=== PATIENT | male | born 1945 | race Caucasian/White ===

== ENCOUNTER 2022-01-31 07:08 | Outpatient (REF) | payer MEDICARE, SELFPAY ==
[2022-01-31 07:36] LABS: MANUAL DIFF FLAG NO
[2022-01-31 08:25] LABS: Basophils Absolute Auto 0.1 X10*3/uL (0.0-0.2); Basophils Percent Auto 0.9 % (0-2); Eosinophils Absolute Auto 0.4 X10*3/uL (0.0-0.4); Eosinophils Percent Auto 3.9 % (0-4); Hematocrit 46.7 % (42.0-52.0); Hemoglobin 15.1 g/dl (14.0-18.0); Imm Gran Abs Auto 0.05 X10*3/uL (0.00-0.03); Imm Gran Pct Auto 0.5 % (0.0-0.4); Lymphocytes Percent Auto 18.6 % (20-40); Mean Corpuscular HGB Conc 32.3 g/dl (31.0-36.0); Mean Corpuscular Hemoglobin 28.7 pg (27.0-33.0); Mean Corpuscular Volume 88.6 fL (80.0-98.0); Mean Platelet Volume 10.2 fL (9.4-12.4); Monocytes Absolute Auto 0.7 X10*3/uL (0.1-1.2); Monocytes Percent Auto 6.4 % (2-11); Neutrophils Absolute Auto 7.6 x10*3/uL (2.0-8.3); Neutrophils Percent Auto 69.7 % (45-73); Platelet Count 368 X10*3/uL (160-400); Red Blood Count 5.27 X10*6/uL (4.60-5.80); Red Cell Distribution Width 13.7 % (11.0-16.0)
[2022-01-31 08:30] LABS: Estimated Average Glucose 123 mg/dL; Hemoglobin A1c % 5.9 %
[2022-01-31 09:01] LABS: Prostate Specific Antigen Scr 0.17 ng/mL (<0.05-4.0); TSH reflex Free T4 1.38 uIU/mL (0.32-4.0)
[2022-01-31 09:02] LABS: Alanine Aminotransferase 13 U/L (0-40); Albumin Level 4.1 g/dL (3.5-5.0); Alkaline Phosphatase 102 U/L (39-117); Anion Gap 16 (12-20); Aspartate Amino Transferase 14 U/L (5-37); Bilirubin Total 0.6 mg/dL (0.0-1.0); Blood Urea Nitrogen 16 mg/dL (9-16); Calcium 9.3 mg/dL (8.4-10.2); Carbon Dioxide 27 mmol/L (22-29); Chloride 101 mmol/L (96-108); Cholesterol 203 mg/dL; Estimated Glomerular Filt Rate 46; Glucose Fasting 126 mg/dL (60-99); HDL Cholesterol 39 mg/dL; LDL Cholesterol Calculated 130 mg/dl; Potassium 4.5 mmol/L (3.3-5.1); Sodium 139 mmol/L (135-145); Total Protein 7.2 g/dL (6.5-8.0); Triglycerides 171 mg/dL; Uric Acid 7.8 mg/dL (3.4-7.0)
[2022-01-31 09:15] LABS: Folate 15.7 ng/mL (> or = 4.0); Vitamin B12 467 pg/mL (200-900)
[2022-02-06 17:01] LABS: Vitamin D 25-OH, D2 <4 ng/mL; Vitamin D 25-OH, D3 36 ng/mL; Vitamin D 25-OH, Total 36 ng/mL (30-100)
== END 2022-01-31 07:09 | disposition home or self-care (01) ==
LOC: HO.LAB 07:08
PROVIDERS: PCP Nurse Practitioner Acute Care; Visit Provider Nurse Practitioner Acute Care
DX: Z12.5 Encounter for screening for malignant neoplasm of prostate (principal); I10 Essential (primary) hypertension; K21.9 Gastro-esophageal reflux disease without esophagitis; M10.9 Gout, unspecified; Z85.46 Personal history of malignant neoplasm of prostate
CPT/HCPCS: 36415; 80053; 80061; 82306; 82607; 82746; 83036; 84153; 84443; 84550; 85025

== ENCOUNTER 2022-08-22 07:16 | Outpatient (REF) | payer MEDICARE, SELFPAY ==
[2022-08-22 08:05] LABS: Baso%MD 1.2 %; Eos%MD 5.6 %; Hematocrit 45.8 % (42.0-52.0); Hemoglobin 15.4 g/dl (14.0-18.0); IG%MD 0.4 %; Mean Corpuscular HGB Conc 33.6 g/dl (31.0-36.0); Mean Corpuscular Hemoglobin 29.7 pg (27.0-33.0); Mean Corpuscular Volume 88.2 fL (80.0-98.0); Mono%MD 6.1 %; Neut%MD 65.7 %; Platelet Count 338 X10*3/uL (160-400); Red Blood Count 5.19 X10*6/uL (4.60-5.80); Red Cell Distribution Width 13.8 % (11.0-16.0)
[2022-08-22 09:00] LABS: Basophils Abs Manual 0.1 X10*3/uL (0.0-0.2); Basophils Percent Manual 1 % (0-2); Eosinophils Absolute Manual 0.7 X10*3/uL (0.0-0.4); Eosinophils Percent Manual 7 % (0-4); Lymphocytes Absolute Manual 1.9 X10*3/uL (1.2-4.9); Lymphocytes Percent Manual 19 % (20-40); Monocytes Absolute Manual 0.5 X10*3/uL (0.1-1.2); Monocytes Percent Manual 5 % (2-11); Neutrophils Percent Manual 68 % (45-73)
[2022-08-22 09:01] LABS: Platelet Estimate NORMAL (NORMAL); Platelet Morphology Comment NORMAL; RBC Morphology NORMAL
[2022-08-22 11:18] LABS: Band Neutrophils Percent 0 % (3-5); Neutrophils Absolute Manual 6.8 X10*3/uL (2.0-8.3)
== END 2022-08-22 07:17 | disposition home or self-care (01) ==
LOC: HO.LAB 07:16
PROVIDERS: Visit Provider Nurse Practitioner Acute Care
DX: N18.9 Chronic kidney disease, unspecified (principal)
CPT/HCPCS: 36415; 85007; 85025; 85027

== ENCOUNTER 2022-12-28 06:20 | Outpatient (REF) | payer MEDICARE, SELFPAY ==
[2022-12-28 08:16] LABS: Estimated Average Glucose 120 mg/dL; Hemoglobin A1C 151.5916 umol/L; Hemoglobin A1c % 5.8 %
[2022-12-28 08:47] LABS: Alanine Aminotransferase 11 U/L (0-40); Albumin Level 4.3 g/dL (3.5-5.0); Alkaline Phosphatase 112 U/L (39-117); Anion Gap 21 (12-20); Aspartate Amino Transferase 14 U/L (5-37); Bilirubin Total 0.8 mg/dL (0.0-1.0); Blood Urea Nitrogen 19 mg/dL (9-16); Carbon Dioxide 22 mmol/L (22-29); Chloride 101 mmol/L (96-108); Cholesterol 192 mg/dL; Estimated Glomerular Filt Rate 41; Glucose Random 130 mg/dL (60-115); HDL Cholesterol 42 mg/dL; LDL Cholesterol Calculated 124 mg/dl; Sodium 140 mmol/L (135-145); Total Protein 7.2 g/dL (6.5-8.0); Triglycerides 130 mg/dL
[2022-12-28 09:14] LABS: Calcium 9.4 mg/dL (8.4-10.2)
== END 2022-12-28 06:21 | disposition home or self-care (01) ==
LOC: HO.LAB 06:20
PROVIDERS: PCP Nurse Practitioner Family; Visit Provider Nurse Practitioner Family
DX: N18.2 Chronic kidney disease, stage 2 (mild) (principal); R73.01 Impaired fasting glucose; M10.9 Gout, unspecified; E78.5 Hyperlipidemia, unspecified
CPT/HCPCS: 36415; 80053; 80061; 83036; 84550

== ENCOUNTER 2023-03-31 07:46 | Outpatient (REF) | payer MEDICARE, SELFPAY ==
[2023-03-31 08:27] LABS: MANUAL DIFF FLAG NO
[2023-03-31 08:59] LABS: Basophils Absolute Auto 0.1 X10*3/uL (0.0-0.2); Basophils Percent Auto 1.1 % (0-2); Eosinophils Absolute Auto 0.6 X10*3/uL (0.0-0.4); Eosinophils Percent Auto 6.5 % (0-4); Hematocrit 45.7 % (42.0-52.0); Hemoglobin 14.6 g/dl (14.0-18.0); Imm Gran Abs Auto 0.03 X10*3/uL (0.00-0.03); Imm Gran Pct Auto 0.3 % (0.0-0.4); Lymphocytes Absolute Auto 1.9 X10*3/uL (1.2-4.9); Mean Corpuscular HGB Conc 31.9 g/dl (31.0-36.0); Mean Corpuscular Hemoglobin 28.7 pg (27.0-33.0); Mean Corpuscular Volume 89.8 fL (80.0-98.0); Mean Platelet Volume 10.4 fL (9.4-12.4); Monocytes Absolute Auto 0.6 X10*3/uL (0.1-1.2); Monocytes Percent Auto 6.4 % (2-11); Neutrophils Absolute Auto 6.1 x10*3/uL (2.0-8.3); Neutrophils Percent Auto 65.7 % (45-73); Platelet Count 328 X10*3/uL (160-400); Red Blood Count 5.09 X10*6/uL (4.60-5.80); Red Cell Distribution Width 13.8 % (11.0-16.0); White Blood Count 9.3 X10*3/uL (4.8-10.8)
[2023-03-31 09:14] LABS: Estimated Average Glucose 117 mg/dL; Hemoglobin A1c % 5.7 %
[2023-03-31 09:35] LABS: Alanine Aminotransferase 10 U/L (0-40); Albumin Level 4.1 g/dL (3.5-5.0); Alkaline Phosphatase 119 U/L (39-117); Anion Gap 15 (12-20); Aspartate Amino Transferase 13 U/L (5-37); Bilirubin Total 0.8 mg/dL (0.0-1.0); Blood Urea Nitrogen 17 mg/dL (9-16); Calcium 9.2 mg/dL (8.4-10.2); Carbon Dioxide 27 mmol/L (22-29); Chloride 104 mmol/L (96-108); Cholesterol 188 mg/dL; Estimated Glomerular Filt Rate 44; Glucose Fasting 120 mg/dL (60-99); HDL Cholesterol 39 mg/dL; LDL Cholesterol Calculated 127 mg/dl; Potassium 4.7 mmol/L (3.3-5.1); Sodium 141 mmol/L (135-145); Total Protein 6.9 g/dL (6.5-8.0); Triglycerides 112 mg/dL; Uric Acid 7.1 mg/dL (3.4-7.0)
[2023-03-31 10:07] LABS: Folate 11.6 ng/mL (> or = 4.0); TSH reflex Free T4 0.75 uIU/mL (0.32-4.0); Vitamin B12 516 pg/mL (200-900); Vitamin D 25-OH Total 50.4 ng/mL (>30)
== END 2023-03-31 07:47 | disposition home or self-care (01) ==
LOC: HO.LAB 07:46
PROVIDERS: PCP Nurse Practitioner Family; Visit Provider Nurse Practitioner Family
DX: I12.9 Hypertensive chronic kidney disease with stage 1 through stage 4 chronic kidney disease, or unspecified chronic kidney disease (principal); N18.2 Chronic kidney disease, stage 2 (mild); M10.9 Gout, unspecified; E78.5 Hyperlipidemia, unspecified; R73.01 Impaired fasting glucose; N18.30 Chronic kidney disease, stage 3 unspecified; E66.9 Obesity, unspecified; K21.9 Gastro-esophageal reflux disease without esophagitis
CPT/HCPCS: 36415; 80053; 80061; 82306; 82607; 82746; 83036; 84443; 84550; 85025

== ENCOUNTER 2023-06-16 07:14 | Outpatient (REF) | payer MEDICARE, SELFPAY ==
[2023-06-16 07:45] LABS: MANUAL DIFF FLAG NO
[2023-06-16 07:50] LABS: Basophils Absolute Auto 0.1 X10*3/uL (0.0-0.2); Eosinophils Absolute Auto 0.5 X10*3/uL (0.0-0.4); Eosinophils Percent Auto 4.8 % (0-4); Hematocrit 46.4 % (42.0-52.0); Hemoglobin 15.1 g/dl (14.0-18.0); Imm Gran Abs Auto 0.05 X10*3/uL (0.00-0.03); Imm Gran Pct Auto 0.5 % (0.0-0.4); Lymphocytes Absolute Auto 1.8 X10*3/uL (1.2-4.9); Lymphocytes Percent Auto 18.7 % (20-40); Mean Corpuscular HGB Conc 32.5 g/dl (31.0-36.0); Mean Corpuscular Hemoglobin 28.8 pg (27.0-33.0); Mean Corpuscular Volume 88.4 fL (80.0-98.0); Mean Platelet Volume 9.9 fL (9.4-12.4); Monocytes Absolute Auto 0.5 X10*3/uL (0.1-1.2); Monocytes Percent Auto 5.5 % (2-11); Neutrophils Absolute Auto 6.9 x10*3/uL (2.0-8.3); Neutrophils Percent Auto 69.5 % (45-73); Platelet Count 318 X10*3/uL (160-400); Red Blood Count 5.25 X10*6/uL (4.60-5.80); Red Cell Distribution Width 13.9 % (11.0-16.0); White Blood Count 9.9 X10*3/uL (4.8-10.8)
[2023-06-16 08:06] LABS: Estimated Average Glucose 114 mg/dL; Hemoglobin A1c % 5.6 %
[2023-06-16 08:18] LABS: Cholesterol 178 mg/dL; HDL Cholesterol 40 mg/dL; LDL Cholesterol Calculated 115 mg/dl; Triglycerides 119 mg/dL
[2023-06-16 08:25] LABS: Alanine Aminotransferase 10 U/L (0-40); Albumin Level 4.2 g/dL (3.5-5.0); Alkaline Phosphatase 96 U/L (39-117); Anion Gap 16 (12-20); Aspartate Amino Transferase 13 U/L (5-37); Bilirubin Total 0.5 mg/dL (0.0-1.0); Blood Urea Nitrogen 21 mg/dL (9-16); Calcium 9.4 mg/dL (8.4-10.2); Carbon Dioxide 24 mmol/L (22-29); Chloride 104 mmol/L (96-108); Estimated Glomerular Filt Rate 48; Glucose Random 128 mg/dL (60-115); Magnesium 1.9 mg/dL (1.6-2.6); Phosphorus 2.6 mg/dL (2.7-4.5); Potassium 4.4 mmol/L (3.3-5.1); Sodium 140 mmol/L (135-145); Total Protein 7.7 g/dL (6.5-8.0); Uric Acid 7.1 mg/dL (3.4-7.0)
[2023-06-16 08:41] LABS: Vitamin D 25-OH Total 49.6 ng/mL (>30)
[2023-06-16 08:47] LABS: Appearance Urine Clear; Color Urine Yellow; Glucose Urine UA Negative (Negative); Leukocyte Esterase Urine Negative (Negative); Nitrite Urine Negative (Negative); Urine Blood Negative (Negative); Urine Ketones Negative (Negative); Urine Protein Trace mg/dL (Neg-Trace)
[2023-06-16 09:13] LABS: Creatinine Urine 219.07 mg/dL; Protein/Creatinine Ratio, Ur 0.08 (<0.2); Total Protein Urine Random 18 mg/dL (<12)
[2023-06-18 12:28] LABS: Free Prostate Spec Ag <0.1 ng/mL; Percent Free Prostate Spec Ag UNABLE TO CALCULATE % (calc) (>25); Prostate Specific Ag Total 0.1 ng/mL (< OR = 4.0)
[2023-06-18 18:13] LABS: PTHI 67 pg/mL (16-77)
[2023-06-21 09:43] LABS: Prot Elec - Alpha1 0.3 g/dL (0.2-0.3); Prot Elec - Beta 1 0.5 g/dL (0.4-0.6); Prot Elec - Beta 2 0.5 g/dL (0.2-0.5); Prot Elec - Total Protein 7.1 g/dL (6.1-8.1)
== END 2023-06-16 07:15 | disposition home or self-care (01) ==
LOC: HO.LAB 07:14
PROVIDERS: Absent Provider Nurse Practitioner Family; Visit Provider Internal Medicine Nephrology
DX: Z12.5 Encounter for screening for malignant neoplasm of prostate (principal); R73.01 Impaired fasting glucose; E78.5 Hyperlipidemia, unspecified; I12.9 Hypertensive chronic kidney disease with stage 1 through stage 4 chronic kidney disease, or unspecified chronic kidney disease; N18.32 Chronic kidney disease, stage 3b; M10.9 Gout, unspecified; Z85.46 Personal history of malignant neoplasm of prostate
CPT/HCPCS: 36415; 80053; 80061; 81003; 82306; 83036; 83735; 83970; 84100; 84154; 84156; 84165; 84550; 85025

== ENCOUNTER 2023-07-11 14:08 | Outpatient (AMB) | payer MEDICARE, SELFPAY ==
[2023-07-11 14:10] VITALS: BP 134/72; PULSE 59; O2SAT 99; BMI 40.5
--- NOTE | 2023-07-11 14:10 | MHC.PC.OV ---
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 Allergies No Known Allergies Allergy (Verified 07/11/23 14:31) Medication List - Last Reconciled 07/11/23 by CHARMAINE Calderon allopurinol 100 mg PO DAILY amlodipine 5 mg PO BID colchicine (gout) 0.6 mg PO BID metoprolol succinate ER 50 mg PO DAILY multivitamin (Daily Multi-Vitamin tablet) 1 tab PO DAILY olmesartan-hydrochlorothiazide 40-25 mg 1 tab PO DAILY pantoprazole 40 mg PO DAILY psyllium 0.52 grams PO DAILY Tobacco use date assessed: 07/11/23 Fall risk assessment: No Falls in past year Last assessed Fall Risk: 07/11/23 Dental Screening Dental Screen Date: 07/11/23 Did you have a dental visit in the last 12 months?: Yes Did you have a dental problem in the last 6 months where you did not have access to dental care?: No HPI F/U HTN, CKD, GERD HPI Details Patient is a 78-year-old male who presents today for a routine follow-up.? Medical history significant for elevated fasting glucose, hyperlipidemia, CKD stage 3 - followed by Nephrology-next visit 07/2023, obesity, history of prostate cancer-followed by Dr. Craft, gout, GERD, and hypertension. Patient denies shortness of breath or chest pain.? Recent blood work results reviewed with the patient. Patient reports intermittent mucus in his mouth especially when he is laying down and he has to cough that mucus up, reports most likely is coming from his nose, denies any cough, no difficulty breathing. Reports taking Mucinex 600 mg 1 tablet daily for long time now. He reports trying nasal sprays in the past with no improvement. [facility] Medical History Encounter to establish care GERD without esophagitis Gout H/O prostate cancer Primary hypertension Surgical History H/O transurethral resection of prostate History of carpal tunnel surgery History of colon surgery History of colonoscopy History of prostate surgery Social History Housing: House Alcohol intake: current Alcohol intake frequency: holidays/special occasions only Patient Tobacco Use Status: Former Tobacco user Tobacco use type: Cigarette e-Cigarette/Vaping Use: Never Used Second Hand Smoke Exposure: No service: Yes Current occupational status: retired Cognitive needs: No Hearing needs: No Vision needs: Yes (glasses) Questionnaire Thrive Questionnaire Date Thrive assessed: 01/04/23 AUDIT C Alcohol Use Questionnaire (AUDIT-C) 1. How often do you have a drink containing alcohol?: Never 2. How many drinks containing alcohol do you have on a typical day when you are drinking?: 1 or 2 (0) 3. How often do you have six or more drinks on one occasion?: Never Total Score: 0 Score Reviewed/Action Taken: No SELAM-7 AMB Questionnaire SELAM-7 Date SELAM - 7 assessed: 07/11/23 Source: Developed by Drs. Bari Miller, Naina Culver, Sebastian Butler and colleagues, with an educational antonia from [employer]. Review of Systems Const Denies body aches, Denies chills, Denies fever(s) and Denies headache(s) Eyes Denies change in vision ENT Denies dizziness, Denies otalgia, Denies headache(s), Denies nasal discharge, Reports post nasal drip, Denies sinus pain and Denies sore throat Card Denies chest pain, Denies edema, Denies lightheadedness and Denies dyspnea Resp Denies chest congestion, Denies cough and Denies dyspnea GI Denies abdominal pain, Denies constipation, Denies diarrhea, Denies nausea and Denies vomiting Denies difficulty urinating and Denies dysuria Musc Denies myalgias, Denies numbness and Denies tingling Skin/Breast Denies lesions and Denies rash Neuro Denies dizziness, Denies headache(s), Denies numbness and Denies tingling Physical exam (Primary Care) Vital Signs: Last Vital Signs Pulse 59 07/11/23 14:10 BP 134/72 07/11/23 14:10 Pulse Ox 99 07/11/23 14:10 Oxygen Delivery Method Room Air 07/11/23 14:10 BMI result Body Mass Index 40.5 Tobacco/Smoking Status: Tobacco use Status Tobacco use date assessed 07/11/23 07/11/23 14:12 Patient Tobacco Use Status Former Tobacco user 07/11/23 14:12 Tobacco use type Cigarette 07/11/23 14:12 e-Cigarette/Vaping Use Never Used 07/11/23 14:12 Thrive Assessment: Date of Thrive Assessment Date Thrive assessed 01/04/23 07/11/23 14:12 Const General: cooperative and no acute distress Orientation/consciousness: patient oriented x3 HENMT Head: Yes normocephalic and Yes atraumatic Ears: TM's normal bilaterally Face and sinus: Yes sinuses nontender Mouth: oropharynx normal and moist mucous membranes Throat: Yes posterior oropharynx normal Eyes General: appearance normal, both eyes and all related structures Pupils: Equal, round and reactive pupils present EOM: EOMs intact bilaterally Neck Neck: Yes normal visual inspection, Yes full ROM and Yes no lymphadenopathy Thyroid: Thyroid normal Resp Effort & Inspection: normal respiratory effort and able to speak in complete sentences Auscultation: clear to auscultation bilaterally, no crackles, no rales and no rhonchi Cardio Rate: regular rate Rhythm: regular rhythm Heart sounds: S1 normal heart sound present, S2 normal heart sound present and no murmurs GI Palpation (GI): Soft to palpation, not firm, nontender, no guarding, not rigid and no hepatosplenomegaly Auscultation: normal bowel sounds Skin General skin exam: no rashes or lesions noted Neuro General: patient oriented x3 Cranial nerves: Yes Equal, round and reactive pupils present Gait exam (Neuro): Normal gait present Extrem General: Yes full ROM and No edema Assessment and Plan Assessment & Plan (1) Elevated fasting glucose: Code(s): R73.01 - Impaired fasting glucose Plan: A1c 5.6 05/2023 Low-carbohydrate diet (2) Hyperlipidemia: Code(s): E78.5 - Hyperlipidemia, unspecified Qualifiers: Hyperlipidemia type: pure hypercholesterolemia Qualified Code(s): E78.00 - Pure hypercholesterolemia, unspecified Plan: LDL 115 05/2023 Low-cholesterol diet Will continue to monitor (3) Obesity (BMI 35.0-39.9 without comorbidity): Code(s): E66.9 - Obesity, unspecified Plan: Healthy food choices and exercise as tolerated (4) H/O prostate cancer: Code(s): Z85.46 - Personal history of malignant neoplasm of prostate Plan: Continue to follow-up with Dr. 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 p.r.n. for flareup (6) GERD without esophagitis: Code(s): K21.9 - Gastro-esophageal reflux disease without esophagitis Plan: Pantoprazole 40 mg daily Avoid GERD trigger foods Do not lay down 2-3 hours after evening meal (7) Primary hypertension: Code(s): I10 - Essential (primary) hypertension Plan: Goal BP equal or less than 140/90 Continue amlodipine 5 mg b.i.d., metoprolol 50 mg daily, and olmesartan-hydrochlorothiazide 40-25 mg daily Low-sodium diet and weight loss Continue to monitor (8) CKD (chronic kidney disease) stage 3, GFR 30-59 ml/min: Code(s): N18.30 - Chronic kidney disease, stage 3 unspecified Plan: Creatinine 1.43 eGFR 48 05/2023 Avoid nephrotoxic medications, increase fluid consumption Continue to follow-up with nephrology-next visit 07/2023 (9) Rhinitis: Code(s): J31.0 - Chronic rhinitis Plan: Encouraged patient to stop Mucinex - lungs are clear, no cough Will try Zyrtec 1 tablet daily Plan Follow-up in 3 months or sooner as needed Orders: Orders Comprehensive [place]. Panel Fast 3 Months I10 - Essential (primary) hypertension Lipid Panel 3 Months I10 - Essential (primary) hypertension Medications: New cetirizine (Zyrtec) 10 mg PO DAILY 30 tabs 0RF allergy symptoms J31.0 - Chronic rhinitis Coding Level of Care Code Est Pt Level 4 (20490) Diagnoses Elevated fasting glucose R73.01 Hyperlipidemia E78.00 Hyperlipidemia type: pure hypercholesterolemia Obesity (BMI 35.0-39.9 without comorbidity) E66.9 H/O prostate cancer Z85.46 Gout M1A.3610 Gout site: knee Gout etiology: due to renal impairment Chronicity: chronic Laterality: right Presence of tophus: without tophus GERD without esophagitis K21.9 Primary hypertension I10 CKD (chronic kidney disease) stage 3, GFR 30-59 ml/min N18.30 Rhinitis J31.0
== END 2023-07-11 14:45 | disposition home or self-care (01) ==
PROVIDERS: PCP Nurse Practitioner Family; Visit Provider Nurse Practitioner Family
DX: K21.9 Gastro-esophageal reflux disease without esophagitis (principal); I12.9 Hypertensive chronic kidney disease with stage 1 through stage 4 chronic kidney disease, or unspecified chronic kidney disease; Z85.46 Personal history of malignant neoplasm of prostate; N18.30 Chronic kidney disease, stage 3 unspecified; Z68.41 Body mass index [BMI] 40.0-44.9, adult; E78.00 Pure hypercholesterolemia, unspecified; R73.01 Impaired fasting glucose; E66.9 Obesity, unspecified; M1A.3 Chronic gout due to renal impairment; J31.0 Chronic rhinitis
CPT/HCPCS: 99214

== ENCOUNTER 2023-09-26 07:16 | Outpatient (REF) | payer MEDICARE, SELFPAY ==
[2023-09-26 08:33] LABS: Alanine Aminotransferase 9 U/L (0-40); Alkaline Phosphatase 103 U/L (39-117); Anion Gap 13 (12-20); Aspartate Amino Transferase 14 U/L (5-37); Bilirubin Total 0.7 mg/dL (0.0-1.0); Blood Urea Nitrogen 16 mg/dL (9-16); Calcium 9.1 mg/dL (8.4-10.2); Carbon Dioxide 27 mmol/L (22-29); Chloride 104 mmol/L (96-108); Cholesterol 183 mg/dL (<200); Estimated Glomerular Filt Rate 50; Glucose Fasting 123 mg/dL (60-99); HDL Cholesterol 45 mg/dL (>40); LDL Cholesterol Calculated 117 mg/dL (<100); Sodium 140 mmol/L (135-145); Total Protein 7.2 g/dL (6.5-8.0); Triglycerides 108 mg/dL (<150)
== END 2023-09-26 07:17 | disposition home or self-care (01) ==
LOC: HO.LAB 07:16
PROVIDERS: PCP Nurse Practitioner Family; Visit Provider Nurse Practitioner Family
DX: I10 Essential (primary) hypertension (principal)
CPT/HCPCS: 36415; 80053; 80061

== ENCOUNTER 2023-10-09 14:20 | Outpatient (AMB) | payer MEDICARE, SELFPAY ==
[2023-10-09 14:22] VITALS: BP 146/74; PULSE 61; O2SAT 98; BMI 40.0
--- NOTE | 2023-10-09 14:22 | MHC.PC.OV ---
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 Allergies No Known Allergies Allergy (Verified 10/09/23 14:33) Medication List - Last Reconciled 10/09/23 by CHARMAINE Calderon allopurinol 100 mg PO DAILY amlodipine 5 mg PO BID cetirizine (Zyrtec) 10 mg PO DAILY colchicine (gout) 0.6 mg PO BID metoprolol succinate ER 50 mg PO DAILY multivitamin (Daily Multi-Vitamin tablet) 1 tab PO DAILY olmesartan-hydrochlorothiazide 40-25 mg 1 tab PO DAILY pantoprazole 40 mg PO DAILY psyllium 0.52 grams PO DAILY Tobacco use date assessed: 10/09/23 Fall risk assessment: No Falls in past year Last assessed Fall Risk: 10/09/23 Dental Screening Dental Screen Date: 10/09/23 Did you have a dental visit in the last 12 months?: Yes Did you have a dental problem in the last 6 months where you did not have access to dental care?: No Was dental information given to patient?: Patient has dentist HPI F/U on HTN, CKD, GERD HPI Details Patient is a 78-year-old male who presents today for a routine follow-up.? Medical history significant for elevated fasting glucose, hyperlipidemia, CKD stage 3 - followed by Nephrology-next visit 01/2024, obesity, history of prostate cancer-followed by Dr. Craft, gout, GERD, and hypertension. Patient denies shortness of breath or chest pain.? Recent blood work results reviewed with the patient. Patient reports intermittent mucus in his mouth especially when he is laying down and he has to cough that mucus up only in the morning, reports most likely is coming from his nose, denies any cough, no difficulty breathing, no wheezing. Reports intermittent right hip pain for the past some time, pain worse with activity, does not take anything for pain. Denies injury. [facility] Medical History Encounter to establish care H/O prostate cancer Gout Primary hypertension GERD without esophagitis Surgical History History of colonoscopy H/O transurethral resection of prostate History of colon surgery History of prostate surgery History of carpal tunnel surgery Housing: House Alcohol intake: current Alcohol intake frequency: holidays/special occasions only Patient Tobacco Use Status: Former Tobacco user Tobacco use type: Cigarette e-Cigarette/Vaping Use: Never Used Second Hand Smoke Exposure: No service: Yes Current occupational status: retired Cognitive needs: No Hearing needs: No Vision needs: Yes (glasses) Questionnaire Thrive Questionnaire Date Thrive assessed: 01/04/23 AUDIT C Alcohol Use Questionnaire (AUDIT-C) 1. How often do you have a drink containing alcohol?: Never 2. How many drinks containing alcohol do you have on a typical day when you are drinking?: 1 or 2 (0) 3. How often do you have six or more drinks on one occasion?: Never Total Score: 0 Score Reviewed/Action Taken: No SELAM-7 AMB Questionnaire SELAM-7 Date SELAM - 7 assessed: 07/11/23 Source: Developed by Drs. Bari Miller, Naina Culver, Sebastian Butler and colleagues, with an educational antonia from [employer]. Review of Systems Const Denies body aches, Denies chills, Denies fever(s) and Denies headache(s) Eyes Denies change in vision ENT Denies dizziness, Denies otalgia, Denies headache(s), Denies nasal discharge, Reports post nasal drip, Denies sinus pain and Denies sore throat Card Denies chest pain, Denies edema, Denies lightheadedness and Denies dyspnea Resp Denies chest congestion, Denies cough and Denies dyspnea GI Denies abdominal pain and Denies vomiting Denies dysuria Musc Denies myalgias and Reports arthralgias Skin/Breast Denies rash Neuro Denies dizziness and Denies headache(s) Physical exam (Primary Care) Vital Signs: Last Vital Signs Pulse 61 10/09/23 14:22 BP 146/74 H 10/09/23 14:22 Pulse Ox 98 10/09/23 14:22 Oxygen Delivery Method Room Air 10/09/23 14:22 BMI result Body Mass Index 40.0 Tobacco/Smoking Status: Tobacco use Status Tobacco use date assessed 10/09/23 10/09/23 14:23 Patient Tobacco Use Status Former Tobacco user 10/09/23 14:23 Tobacco use type Cigarette 10/09/23 14:23 e-Cigarette/Vaping Use Never Used 10/09/23 14:23 Thrive Assessment: Date of Thrive Assessment Date Thrive assessed 01/04/23 10/09/23 14:23 Const General: cooperative and no acute distress Orientation/consciousness: patient oriented x3 HENMT Head: Yes normocephalic and Yes atraumatic Face and sinus: Yes sinuses nontender Mouth: oropharynx normal and moist mucous membranes Throat: Yes posterior oropharynx normal Eyes General: appearance normal, both eyes and all related structures Neck Neck: Yes normal visual inspection, Yes full ROM and Yes no lymphadenopathy Resp Effort & Inspection: normal respiratory effort and able to speak in complete sentences Auscultation: clear to auscultation bilaterally, no crackles, no rales and no rhonchi Cardio Rate: regular rate Rhythm: regular rhythm Heart sounds: S1 normal heart sound present, S2 normal heart sound present and no murmurs GI Auscultation: normal bowel sounds Skin General skin exam: no rashes or lesions noted Neuro General: patient oriented x3 Gait exam (Neuro): Normal gait present Extrem General: Yes full ROM and No edema Assessment and Plan Assessment & Plan (1) Elevated fasting glucose: Code(s): R73.01 - Impaired fasting glucose Plan: A1c 5.6 05/2023 Low-carbohydrate diet (2) Hyperlipidemia: Code(s): E78.5 - Hyperlipidemia, unspecified Qualifiers: Hyperlipidemia type: pure hypercholesterolemia Qualified Code(s): E78.00 - Pure hypercholesterolemia, unspecified Plan: LDL 117 09/2023 Low-cholesterol diet (3) H/O prostate cancer: Code(s): Z85.46 - Personal history of malignant neoplasm of prostate Plan: Continue to follow-up with Dr. Craft on yearly basis per patient (4) GERD without esophagitis: Code(s): K21.9 - Gastro-esophageal reflux disease without esophagitis Plan: Pantoprazole 40 mg daily Avoid GERD trigger foods Do not lay down 2-3 hours after evening meal (5) Primary hypertension: Code(s): I10 - Essential (primary) hypertension Plan: Goal BP equal or less than 140/90 Continue amlodipine 5 mg b.i.d., metoprolol 50 mg daily, and olmesartan-hydrochlorothiazide 40-25 mg daily Low-sodium diet and weight loss Continue to monitor (6) CKD (chronic kidney disease) stage 3, GFR 30-59 ml/min: Code(s): N18.30 - Chronic kidney disease, stage 3 unspecified Plan: Creatinine 1.39 eGFR 50 09/2023 Avoid nephrotoxic medications, increase fluid consumption Continue to follow-up with nephrology (7) Rhinitis: Code(s): J31.0 - Chronic rhinitis Plan: Continue Zyrtec daily Start Flonase nasal spray at bedtime (8) Right hip pain: Code(s): M25.551 - Pain in right hip Plan: Possible arthritis, will refer to physical therapy, follow-up if no improvement after physical therapy. Patient can try [id number] Tylenol 650 mg every 6 hours as needed for pain. Encouraged heat/cold packs p.r.n. Orders: Orders PT Evaluation and Treatment Today M25.551 - Pain in right hip Lipid Panel 3 Months E78.5 - Hyperlipidemia, unspecified Comprehensive [place]. Panel Fast 3 Months R73.01 - Impaired fasting glucose Hemoglobin A1c 3 Months R73.01 - Impaired fasting glucose Medications: New fluticasone propionate 50 mcg/actuation (Flonase Allergy Relief) administer into each nostril 1 spray intranasal BEDTIME 100 mL 0RF J31.0 - Chronic rhinitis Refilled cetirizine (Zyrtec) 10 mg PO DAILY 30 tabs 3RF allergy symptoms J31.0 - Chronic rhinitis Coding Level of Care Code Est Pt Level 4 (22836) Diagnoses Elevated fasting glucose R73.01 Pure hypercholesterolemia E78.00 Hyperlipidemia type: pure hypercholesterolemia H/O prostate cancer Z85.46 GERD without esophagitis K21.9 Primary hypertension I10 CKD (chronic kidney disease) stage 3, GFR 30-59 ml/min N18.30 Rhinitis J31.0 Right hip pain M25.551
[2023-10-09 14:46] VITALS: BP 124/70
== END 2023-10-09 14:51 | disposition home or self-care (01) ==
LOC: HO.HMGH 14:20
PROVIDERS: PCP Nurse Practitioner Family; Visit Provider Nurse Practitioner Family
DX: R73.01 Impaired fasting glucose (principal); I12.9 Hypertensive chronic kidney disease with stage 1 through stage 4 chronic kidney disease, or unspecified chronic kidney disease; N18.30 Chronic kidney disease, stage 3 unspecified; E78.00 Pure hypercholesterolemia, unspecified; Z85.46 Personal history of malignant neoplasm of prostate; K21.9 Gastro-esophageal reflux disease without esophagitis; J31.0 Chronic rhinitis; M25.551 Pain in right hip
CPT/HCPCS: 99214

== ENCOUNTER 2024-01-14 13:00 | Outpatient (RCR) | payer MEDICARE, SELFPAY ==
[2023-12-19 15:02] VITALS: BP 168/80; PULSE 66; O2SAT 97
--- NOTE | 2023-12-20 18:06 | MHC.PT.EP ---
[facility] [place] Office [place] Office [place] Office [address] Allen Avitia [address] [phone] F: [phone] F: [phone] F: [phone] F: [phone] Physical Therapy Plan of Care Date of Evaluation: 12/19/23 Date of Surgery: Diagnosis: R hip pain Assessment: Pt is a 78 y/o male who is referred to PT for eval and treat of R hip pain who reports he stepped in a hole while mowing his lawn and felt R hip pain but did not fall and reports this was around September and his dysfunction is persisting resulting in decreased tolerance for walking moderate to long distances, negotiating stairs, as well as standing for duration secondary to decreased R hip strength, mild- moderate Trendelenburg gait, TTP of his R lateral hip about his Gr Trochanter and sedentary lifestyle. Pt is deemed an appropriate candidate to receive skilled PT services to address their physical impairments in order to improve their functional ability. Frequency and Duration: The patient will be seen 2 x / wk x 4 wks. Short Term Goals: I with home program. Improve baseline pain to < 4/10; initial: 5/10. [employer] Goals: I with home program. Pt will no longer be TTP of his R lateral hip. Pt will improve his LEFI outcome measure by at least 9 points. Pt will be able to walk 2 blocks without difficulty; initial: moderate difficulty. Treatment Plan: Modalities to reduce pain, spasms and effusion. Manual therapy to restore motion and function. Therapeutic exercise to improve strength and flexibility. Neuromuscular re-education for posture and balance. Therapeutic activities to return to functional activities of daily living. Electronically signed by: Bon Love PT. Please sign and return to therapist. Thank you for your referral.
--- NOTE | 2024-05-05 08:14 | MHC.PT.DC ---
[facility] [place] Office [place] Office [place] Office [address] Allen Avitia [address] [phone] F: [phone] F: [phone] F: [phone] F: [phone] Physical Therapy Discharge Report Diagnosis: R hip pain Date of Surgery: Date of Evaluation: 12/19/23 Date of Discharge: 05/05/24 Treatments to Date: 9 Cancellations to Date: No Shows to Date: Discharge Status: Achieved Goals Improved Function Independent with HEP Discharge Summary: . Electronically signed by: Bon Love PT. Please sign and return to therapist. Thank you for your referral.
== END 2024-05-05 08:14 | disposition home or self-care (01) ==
LOC: HO.PT 13:00
PROVIDERS: PCP Nurse Practitioner Family; Visit Provider Nurse Practitioner Family
DX: M25.551 Pain in right hip (principal)
CPT/HCPCS: 97110; 97140; 97161

== ENCOUNTER 2024-02-01 07:39 | Outpatient (REF) | payer MEDICARE, SELFPAY ==
[2024-02-01 08:00] LABS: MANUAL DIFF FLAG NO
[2024-02-01 08:12] LABS: Basophils Absolute Auto 0.1 X10*3/uL (0.0-0.2); Basophils Percent Auto 0.9 % (0-2); Eosinophils Absolute Auto 0.6 X10*3/uL (0.0-0.4); Eosinophils Percent Auto 5.6 % (0-4); Hematocrit 45.7 % (42.0-52.0); Hemoglobin 15.1 g/dl (14.0-18.0); Imm Gran Abs Auto 0.09 X10*3/uL (0.00-0.03); Imm Gran Pct Auto 0.8 % (0.0-0.4); Lymphocytes Absolute Auto 2.3 X10*3/uL (1.2-4.9); Lymphocytes Percent Auto 20.7 % (20-40); Mean Corpuscular Hemoglobin 28.7 pg (27.0-33.0); Mean Corpuscular Volume 86.9 fL (80.0-98.0); Mean Platelet Volume 10.1 fL (9.4-12.4); Monocytes Absolute Auto 0.7 X10*3/uL (0.1-1.2); Monocytes Percent Auto 6.4 % (2-11); Neutrophils Absolute Auto 7.2 x10*3/uL (2.0-8.3); Neutrophils Percent Auto 65.6 % (45-73); Platelet Count 332 X10*3/uL (160-400); Red Blood Count 5.26 X10*6/uL (4.60-5.80); Red Cell Distribution Width 13.9 % (11.0-16.0)
[2024-02-01 08:18] LABS: Estimated Average Glucose 117 mg/dL; Hemoglobin A1c % 5.7 % (<6.0)
[2024-02-01 08:36] LABS: Protein/Creatinine Ratio, Ur 0.08 (<0.2); Total Protein Urine Random 24 mg/dL (<12)
[2024-02-01 08:38] LABS: Alanine Aminotransferase 11 U/L (0-40); Alkaline Phosphatase 100 U/L (39-117); Anion Gap 14 (12-20); Aspartate Amino Transferase 15 U/L (5-37); Bilirubin Total 0.7 mg/dL (0.0-1.0); Blood Urea Nitrogen 18 mg/dL (9-16); Calcium 9.7 mg/dL (8.4-10.2); Carbon Dioxide 27 mmol/L (22-29); Chloride 104 mmol/L (96-108); Cholesterol 199 mg/dL (<200); Estimated Glomerular Filt Rate 42; Glucose Fasting 129 mg/dL (60-99); HDL Cholesterol 49 mg/dL (>40); LDL Cholesterol Calculated 119 mg/dL (<100); Parathyroid Hormone Intact 100.6 pg/mL (8.7-77.1); Potassium 4.2 mmol/L (3.3-5.1); Sodium 141 mmol/L (135-145); Total Protein 7.5 g/dL (6.5-8.0); Triglycerides 159 mg/dL (<150)
[2024-02-01 08:40] LABS: Magnesium 1.9 mg/dL (1.6-2.6); Phosphorus 2.7 mg/dL (2.7-4.5); Uric Acid 7.7 mg/dL (3.4-7.0)
[2024-02-01 08:56] LABS: Vitamin D 25-OH Total 41.1 ng/mL (>30)
== END 2024-02-01 07:40 | disposition home or self-care (01) ==
LOC: HO.LAB 07:39
PROVIDERS: Absent Provider Internal Medicine Nephrology; PCP Physician Assistant; Visit Provider Nurse Practitioner Family
DX: R73.01 Impaired fasting glucose (principal); E78.5 Hyperlipidemia, unspecified; I12.9 Hypertensive chronic kidney disease with stage 1 through stage 4 chronic kidney disease, or unspecified chronic kidney disease; N18.32 Chronic kidney disease, stage 3b; M10.9 Gout, unspecified; Z85.46 Personal history of malignant neoplasm of prostate
CPT/HCPCS: 36415; 80053; 80061; 82306; 82570; 83036; 83735; 83970; 84100; 84156; 84550; 85025

== ENCOUNTER 2024-05-24 07:48 | Outpatient (REF) | payer MEDICARE, SELFPAY ==
[2024-05-24 08:37] LABS: Alanine Aminotransferase 12 U/L (0-40); Albumin Level 4.1 g/dL (3.5-5.0); Alkaline Phosphatase 102 U/L (39-117); Anion Gap 15 (12-20); Aspartate Amino Transferase 16 U/L (5-37); Bilirubin Total 0.8 mg/dL (0.0-1.0); Blood Urea Nitrogen 16 mg/dL (9-16); Carbon Dioxide 26 mmol/L (22-29); Chloride 103 mmol/L (96-108); Estimated Glomerular Filt Rate 46; Glucose Fasting 132 mg/dL (60-99); Sodium 140 mmol/L (135-145); Total Protein 7.7 g/dL (6.5-8.0)
== END 2024-05-24 07:49 | disposition home or self-care (01) ==
LOC: HO.LAB 07:48
PROVIDERS: Absent Provider Internal Medicine; PCP Internal Medicine; Visit Provider Nurse Practitioner Family
DX: R73.01 Impaired fasting glucose (principal)
CPT/HCPCS: 36415; 80053

== ENCOUNTER 2024-06-04 14:31 | Outpatient (AMB) | payer OTHER, SELFPAY ==
--- NOTE | 2024-06-04 15:14 | MHC.PC.OV ---
Vital Signs 06/04/24 15:16 Height 5 ft 9.5 in Weight 275 lb 2 oz BMI 40.0 BP 120/68 Blood Pressure Location Lt brachial Position Sitting Pulse 67 Pulse Source Pulse Oximeter Pulse Oximetry (%) 96 Oxygen Delivery Method Room Air Intake Visit Reasons: Annual Exam former [facility] patient Intake Note: Patient is here today for a physical FARIDA from [facility] Presser Machine Required: No Foundation Drill Operator: Not Required per policy Accompanied by: Self / Same As Patient Allergies No Known Allergies Allergy (Verified 06/09/24 11:43) Medication List - Last Reconciled 06/09/24 by Skyler Yeboah MD allopurinol 100 mg PO DAILY amlodipine 5 mg PO BID cetirizine (Zyrtec) 10 mg PO DAILY clotrimazole 10 mg mucous membrane TID colchicine 0.6 mg PO BID metoprolol succinate ER 50 mg PO DAILY multivitamin (Daily Multi-Vitamin tablet) 1 tab PO DAILY olmesartan-hydrochlorothiazide 40-25 mg 1 tab PO DAILY pantoprazole 40 mg PO DAILY psyllium 0.52 grams PO DAILY Tobacco use date assessed: 06/04/24 Fall risk assessment: No Falls in past year Last assessed Fall Risk: 06/04/24 Dental Screening Dental Screen Date: 06/04/24 Did you have a dental visit in the last 12 months?: No Did you have a dental problem in the last 6 months where you did not have access to dental care?: No Was dental information given to patient?: No (Dentures) HPI Annual Exam former [facility] patient HPI Details 78-year-old male presents to the office requesting an annual physical. Patient sees a keg raiser in [place] for chronic kidney disease. He gets his blood work done regularly there. All medications are managed by the keg raiser. [facility], LATER [facility] Medical History Encounter to establish care H/O prostate cancer Gout Primary hypertension GERD without esophagitis Surgical History History of colonoscopy H/O transurethral resection of prostate History of colon surgery History of prostate surgery History of carpal tunnel surgery Social History Housing: House Alcohol intake: current Alcohol intake frequency: holidays/special occasions only Patient Tobacco Use Status: Former Tobacco user Tobacco use type: Cigarette e-Cigarette/Vaping Use: Never Used Second Hand Smoke Exposure: No service: Yes Current occupational status: retired Cognitive needs: No Hearing needs: No Vision needs: Yes (glasses) Questionnaire PHQ-9 Over the last 2 weeks, how often have you been bothered by any of the following problems? 1. Little interest or pleasure in doing things: not at all 2. Feeling down, depressed, or hopeless: not at all 3. Trouble falling or staying asleep, or sleeping too much: not at all 4. Feeling tired or having little energy: not at all 5. Poor appetite or overeating: not at all 6. Feeling bad about yourself - or that you are a failure or have let yourself or your family down: not at all 7. Trouble concentrating on things, such as reading the newspaper or watching television: not at all 8. Moving or speaking so slowly that other people could have noticed. Or the opposite - being so fidgety or restless that you have been moving around a lot more than usual: not at all 9. Thoughts that you would be better off or of hurting yourself in some way: not at all Total score: 0 Depression Screening Interpretation: Negative Depression Screening Done: Yes Source: Developed by Drs. Bari Miller, Naina Culver, Sebastian Butler and colleagues, with an educational antonia from [employer]. Thrive Questionnaire Date Thrive assessed: 06/04/24 I am a: Patient What is your living situation today?: I have a steady place to live Within the past 12 months, did the food you bought not last and you didn't have the money to get more?: Never true Within the past 12 months, did you worry whether your food would run out before you got money to buy more?: Never true Do you have trouble paying for medicines?: No Do you have trouble getting transportation to medical appointments?: No Do you have trouble paying your heating and electricity bill?: No Do you have trouble taking care of your child, family member or friend?: No Do you have trouble with day-to-day activities such as bathing, preparing meals, shopping, managing finances, etc.?: No Are you currently unemployed and looking for a job?: No Are you interested in more education?: No Currently or been in a relationship where the following occur: No concerns reported THRIVE Score: 0 AUDIT C Alcohol Use Questionnaire (AUDIT-C) 1. How often do you have a drink containing alcohol?: Never Total Score: 0 SELAM-7 AMB Questionnaire SELAM-7 Date SELAM - 7 assessed: 06/04/24 Feeling nervous, anxious, or on edge: 0 = Not at all Not being able to stop or control worryin = Not at all Worrying too much about different things: 0 = Not at all Trouble relaxin = Not at all Being so restless that it is hard to sit still: 0 = Not at all Becoming easily annoyed or irritable: 0 = Not at all Feeling afraid as if something awful might happen: 0 = Not at all Total SELAM-7 score (0-4 normal; 5-9 mild; 10-14 moderate; 15-21 severe): 0 Source: Developed by Drs. Bari Miller, Naina Culver, Sebastian Butler and colleagues, with an educational antonia from [employer]. Physical exam (Primary Care) Vital Signs: Last Vital Signs Pulse 67 06/04/24 15:16 BP 120/68 06/04/24 15:16 Pulse Ox 96 06/04/24 15:16 Oxygen Delivery Method Room Air 06/04/24 15:16 BMI result Body Mass Index 40.0 Tobacco/Smoking Status: Tobacco use Status Tobacco use date assessed 06/04/24 06/04/24 15:23 Patient Tobacco Use Status Former Tobacco user 06/04/24 15:23 Tobacco use type Cigarette 06/04/24 15:23 e-Cigarette/Vaping Use Never Used 06/04/24 15:23 PHQ-9: PHQ-9 Score PHQ-9: Total score 0 06/04/24 15:48 Depression Screening Interpretation: Negative Thrive Assessment: Date of Thrive Assessment Date Thrive assessed 06/04/24 06/04/24 15:23 Currently or been in a relationship where the following occur: No concerns reported Const General: cooperative and healthy appearing Nutritional Appearance: well nourished Orientation/consciousness: patient oriented x3 Limitations: no limitations HENMT Head: Yes normal to inspection Eyes General: appearance normal, both eyes and all related structures Neck Neck: Yes normal visual inspection Chest Chest palpation & inspection: normal palpation of entire chest wall Resp Effort & Inspection: normal respiratory effort Neuro General: patient oriented x3 Results AMB Hemoglobin A1c AMB Hemoglobin A1c 6.0 % Last Edit by FOSTER Lane on 06/04/24 15:57 Results Reviewed Results Reviewed: Laboratory Last Values Hgb A1c (Clinic) 6.0 % (4.0-6.0) 06/04/24 15:30 Assessment and Plan Assessment & Plan (1) CKD (chronic kidney disease) stage 3, GFR 30-59 ml/min: Code(s): N18.30 - Chronic kidney disease, stage 3 unspecified Plan: Patient will provide the name of his keg raiser. He will be contacted for the last OV and lab work. (2) Annual physical exam: Code(s): Z00.00 - Encounter for general adult medical examination without abnormal findings Plan: Blood work noted Orders: Orders AMB Hemoglobin A1c 06/04/24 Z13.9 - Encounter for screening, unspecified Medications: New clotrimazole 10 mg mucous membrane TID 30 tabs 0RF Coding Level of Care Code Est Pt Prev Care >65y(29700) Diagnoses CKD (chronic kidney disease) stage 3, GFR 30-59 ml/min N18.30 Annual physical exam Z00.00
[2024-06-04 15:16] VITALS: BP 120/68; PULSE 67; O2SAT 96; BMI 40.0
== END 2024-06-04 16:04 | disposition home or self-care (01) ==
PROVIDERS: PCP Internal Medicine; Visit Provider Internal Medicine
DX: N18.30 Chronic kidney disease, stage 3 unspecified (principal)
CPT/HCPCS: 83036; 99397

== ENCOUNTER 2024-07-29 06:46 | Outpatient (REF) | payer MEDICARE, SELFPAY ==
[2024-07-29 06:59] LABS: MANUAL DIFF FLAG NO
[2024-07-29 07:33] LABS: Basophils Absolute Auto 0.1 X10*3/uL (0.0-0.2); Basophils Percent Auto 1.2 % (0-2); Eosinophils Absolute Auto 0.7 X10*3/uL (0.0-0.4); Eosinophils Percent Auto 7.1 % (0-4); Hematocrit 47.4 % (42.0-52.0); Hemoglobin 15.4 g/dl (14.0-18.0); Imm Gran Abs Auto 0.04 X10*3/uL (0.00-0.03); Imm Gran Pct Auto 0.4 % (0.0-0.4); Lymphocytes Absolute Auto 2.3 X10*3/uL (1.2-4.9); Lymphocytes Percent Auto 22.3 % (20-40); Mean Corpuscular HGB Conc 32.5 g/dl (31.0-36.0); Mean Corpuscular Hemoglobin 28.9 pg (27.0-33.0); Mean Corpuscular Volume 89.1 fL (80.0-98.0); Mean Platelet Volume 10.6 fL (9.4-12.4); Monocytes Absolute Auto 0.7 X10*3/uL (0.1-1.2); Monocytes Percent Auto 6.6 % (2-11); Neutrophils Absolute Auto 6.5 x10*3/uL (2.0-8.3); Neutrophils Percent Auto 62.4 % (45-73); Platelet Count 348 X10*3/uL (160-400); Red Blood Count 5.32 X10*6/uL (4.60-5.80); White Blood Count 10.4 X10*3/uL (4.8-10.8)
[2024-07-29 08:08] LABS: Parathyroid Hormone Intact 104.9 pg/mL (8.7-77.1)
[2024-07-29 08:20] LABS: Creatinine Urine 333.03 mg/dL; Protein/Creatinine Ratio, Ur 0.09 (<0.2); Total Protein Urine Random 29 mg/dL (<12)
[2024-07-29 08:21] LABS: Alanine Aminotransferase 16 U/L (0-40); Albumin Level 4.1 g/dL (3.5-5.0); Alkaline Phosphatase 98 U/L (39-117); Anion Gap 15 (12-20); Aspartate Amino Transferase 13 U/L (5-37); Bilirubin Total 0.5 mg/dL (0.0-1.0); Blood Urea Nitrogen 19 mg/dL (9-16); Calcium 9.3 mg/dL (8.4-10.2); Carbon Dioxide 25 mmol/L (22-29); Chloride 104 mmol/L (96-108); Estimated Glomerular Filt Rate 49; Glucose Random 122 mg/dL (60-115); Magnesium 1.9 mg/dL (1.6-2.6); Phosphorus 2.6 mg/dL (2.7-4.5); Potassium 3.9 mmol/L (3.3-5.1); Sodium 140 mmol/L (135-145); Total Protein 7.4 g/dL (6.5-8.0); Uric Acid 7.6 mg/dL (3.4-7.0)
[2024-07-29 08:29] LABS: Vitamin D 25-OH Total 53.9 ng/mL (>30)
== END 2024-07-29 06:47 | disposition home or self-care (01) ==
LOC: HO.LAB 06:46
PROVIDERS: PCP Internal Medicine; Visit Provider Internal Medicine Nephrology
DX: N18.32 Chronic kidney disease, stage 3b (principal); M10.9 Gout, unspecified; I10 Essential (primary) hypertension; Z85.45 Personal history of malignant neoplasm of unspecified male genital organ
CPT/HCPCS: 36415; 80053; 82306; 82570; 83735; 83970; 84100; 84156; 84550; 85025

== ENCOUNTER 2024-12-26 10:12 | Outpatient (AMB) | payer MEDICARE, SELFPAY ==
--- NOTE | 2024-12-26 10:16 | A.OFFPC_ITS ---
Vital Signs 12/26/24 10:18 Height 5 ft 9.5 in Weight 279 lb 8 oz BMI 40.7 BP 110/60 Blood Pressure Location Lt brachial Position Sitting Pulse 66 Pulse Source Pulse Oximeter Temp 97.3 F Temp Source Skin Pulse Oximetry (%) 97 Oxygen Delivery Method Room Air Intake Visit Reasons: 6 month follow up Intake Note: Patient is here to follow up on CKD, HLD, HTN. Slitter Creaser Slotter Helper Required: No Systems Technologist: Not Required per policy Accompanied by: Self / Same As Patient Allergies No Known Allergies Allergy (Verified 12/26/24 10:40) Medication List - Last Reconciled 12/26/24 by Debbie Man PA-C allopurinol 150 mg PO DAILY amlodipine 5 mg PO BID cetirizine (Zyrtec) 10 mg PO DAILY clotrimazole 10 mg mucous membrane TID colchicine 0.6 mg PO BID metoprolol succinate ER 50 mg PO DAILY multivitamin (Daily Multi-Vitamin tablet) 1 tab PO DAILY olmesartan-hydrochlorothiazide 40-25 mg 1 tab PO DAILY pantoprazole 40 mg PO DAILY psyllium 0.52 grams PO DAILY Tobacco use date assessed: 12/26/24 Fall risk assessment: 1 Fall in past year Last assessed Fall Risk: 12/26/24 Dental Screening Dental Screen Date: 12/26/24 Did you have a dental visit in the last 12 months?: No Did you have a dental problem in the last 6 months where you did not have access to dental care?: No Was dental information given to patient?: No (Dentures) [facility] Medical History (Updated 12/26/24 @ 10:55 by Debbie Man PA-C) Follow-up exam, 3-6 months since previous exam Encounter to establish care H/O prostate cancer Gout Primary hypertension GERD without esophagitis Surgical History History of colonoscopy H/O transurethral resection of prostate History of colon surgery History of prostate surgery History of carpal tunnel surgery Social History Housing: House Alcohol intake: current Alcohol intake frequency: holidays/special occasions only Patient Tobacco Use Status: Former Tobacco user Tobacco use type: Cigarette e-Cigarette/Vaping Use: Never Used Second Hand Smoke Exposure: Yes service: Yes Current occupational status: retired Cognitive needs: No Hearing needs: No Vision needs: Yes (glasses) Questionnaire PHQ-9 Over the last 2 weeks, how often have you been bothered by any of the following problems? 1. Little interest or pleasure in doing things: not at all 2. Feeling down, depressed, or hopeless: not at all 3. Trouble falling or staying asleep, or sleeping too much: not at all 4. Feeling tired or having little energy: not at all 5. Poor appetite or overeating: not at all 6. Feeling bad about yourself - or that you are a failure or have let yourself or your family down: not at all 7. Trouble concentrating on things, such as reading the newspaper or watching television: not at all 8. Moving or speaking so slowly that other people could have noticed. Or the opposite - being so fidgety or restless that you have been moving around a lot more than usual: not at all 9. Thoughts that you would be better off or of hurting yourself in some way: not at all Total score: 0 Depression Screening Interpretation: Negative Depression Screening Done: Yes 20763 - PHQ-9 Billing: Yes Source: Developed by Drs. Bari Miller, Naina Culver, Sebastian Butler and colleagues, with an educational antonia from [employer]. Thrive Questionnaire Date Thrive assessed: 12/26/24 I am a: Patient What is your living situation today?: I have a steady place to live Within the past 12 months, did the food you bought not last and you didn't have the money to get more?: Never true Within the past 12 months, did you worry whether your food would run out before you got money to buy more?: Never true Do you have trouble paying for medicines?: No Do you have trouble getting transportation to medical appointments?: No Do you have trouble paying your heating and electricity bill?: No Do you have trouble taking care of your child, family member or friend?: No Do you have trouble with day-to-day activities such as bathing, preparing meals, shopping, managing finances, etc.?: No Are you currently unemployed and looking for a job?: No Are you interested in more education?: No Please select the resources that you would like help with: None Currently or been in a relationship where the following occur: No concerns reported THRIVE Score: 0 AUDIT C Alcohol Use Questionnaire (AUDIT-C) 1. How often do you have a drink containing alcohol?: Never Total Score: 0 Score Reviewed/Action Taken: Yes SELAM-7 AMB Questionnaire SELAM-7 Date SELAM - 7 assessed: 12/26/24 Feeling nervous, anxious, or on edge: 0 = Not at all Not being able to stop or control worryin = Not at all Worrying too much about different things: 0 = Not at all Trouble relaxin = Not at all Being so restless that it is hard to sit still: 0 = Not at all Becoming easily annoyed or irritable: 0 = Not at all Feeling afraid as if something awful might happen: 0 = Not at all Total SELAM-7 score (0-4 normal; 5-9 mild; 10-14 moderate; 15-21 severe): 0 Source: Developed by Drs. Bari Miller, Naina Culver, Sebastian Butler and colleagues, with an educational antonia from [employer]. SELAM-7 Assessment Billing SELAM-7 Assessment Tool: SELAM-7 Assessment 43898 Physical exam (Primary Care) Vital Signs: Last Vital Signs Temp 97.3 F 12/26/24 10:18 Pulse 66 12/26/24 10:18 BP 110/60 12/26/24 10:18 Pulse Ox 97 12/26/24 10:18 Oxygen Delivery Method Room Air 12/26/24 10:18 Care Plan Goal for BP management: <130/80 BMI result Body Mass Index 40.7 BMI Assessment/Plan discussion: High BMI High, discussed plan: lifestyle, weight reduction, dietary, physical activity and alcohol moderation Tobacco/Smoking Status: Tobacco use Status Tobacco use date assessed 12/26/24 12/26/24 10:25 Patient Tobacco Use Status Former Tobacco user 12/26/24 10:25 Tobacco use type Cigarette 12/26/24 10:25 e-Cigarette/Vaping Use Never Used 12/26/24 10:25 PHQ-9: PHQ-9 Score PHQ-9: Total score 0 12/26/24 10:25 Depression Screening Interpretation: Negative Thrive Assessment: Date of Thrive Assessment Date Thrive assessed 12/26/24 12/26/24 10:25 Currently or been in a relationship where the following occur: No concerns reported Coding Level of Care Code Est Pt Level 4 (83364) Complex EM visit Add On G2211 Diagnoses CKD (chronic kidney disease) stage 3, GFR 30-59 ml/min N18.30 Pure hypercholesterolemia E78.00 Hyperlipidemia type: pure hypercholesterolemia Obesity (BMI 35.0-39.9 without comorbidity) E66.9 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 Gout site: knee Gout etiology: due to renal impairment Chronicity: chronic Laterality: right Presence of tophus: without tophus Primary hypertension I10 GERD without esophagitis K21.9 Rhinitis J31.0 Follow-up exam, 3-6 months since previous exam Z09 Additional Codes PHQ-9 - 87637 - PHQ-9 Billing: Yes ([id number]) SELAM-7 Assessment Billing - SELAM-7 Assessment Tool: SELAM-7 Assessment 34664 ([id number]) Assessment & Plan Assessment & Plan (1) CKD (chronic kidney disease) stage 3, GFR 30-59 ml/min: Code(s): N18.30 - Chronic kidney disease, stage 3 unspecified Category: Medical Plan: CKD being followed by Nephrology. Condition is chronic and stable continue to monitor (2) Hyperlipidemia: Code(s): E78.5 - Hyperlipidemia, unspecified Category: Medical Qualifiers: Hyperlipidemia type: pure hypercholesterolemia Qualified Code(s): E78.00 - Pure hypercholesterolemia, unspecified Plan: Condition is chronic and stable continue to monitor. (3) Obesity (BMI 35.0-39.9 without comorbidity): Code(s): E66.9 - Obesity, unspecified Category: Medical Plan: Condition is chronic and stable continue to monitor. (4) Gout: Code(s): M10.9 - Gout, unspecified Category: Medical Qualifiers: Gout site: knee Gout etiology: due to renal impairment Chronicity: chronic Laterality: right Presence of tophus: without tophus Qualified Code(s): M1A.3610 - Chronic gout due to renal impairment, right knee, without tophus (tophi) Plan: Patient currently on allopurinol 150 mg daily has p.r.n. colchicine. Condition is chronic and stable continue to monitor. (5) Primary hypertension: Code(s): I10 - Essential (primary) hypertension Category: Medical Plan: Patient on amlodipine 5 mg b.i.d. and metoprolol 50 mg extended release daily, olmesartan hydrochlorothiazide combo 40 x 25 mg daily. Condition is chronic and stable continue to monitor. (6) GERD without esophagitis: Code(s): K21.9 - Gastro-esophageal reflux disease without esophagitis Category: Medical Plan: Patient on pantoprazole 40 mg daily. Condition is chronic and stable continue to monitor. (7) Rhinitis: Code(s): J31.0 - Chronic rhinitis Category: Medical Plan: Will refill Zyrtec. Condition is chronic and stable continue to monitor. (8) Follow-up exam, 3-6 months since previous exam: Code(s): Z09 - Encounter for follow-up examination after completed treatment for conditions other than malignant neoplasm Category: Medical Plan Plan - Recommend refill of Zyrtec to manage postnasal drip symptoms. - Continue current Allopurinol dosage prn COLCHICINE for gout management and monitor for side effects. - No change in hypertension management; continue current medications. - Scheduled follow-up labs including CBC, CMP, magnesium, phosphorus, PTH, TSH, vitamin D level, and others to monitor current diagnoses. - Coordinate fasting blood tests prior to the upcoming physical examination. Orders: Orders Comprehensive [place]. Panel Fast Today Debbie Man PA-C Z00.00 - Encounter for general adult medical examination without abnormal findings Magnesium Today Debbie Man PA-C Z00.00 - Encounter for general adult medical examination without abnormal findings Vitamin D 25-OH Total Today Debbie Man PA-C Z00.00 - Encounter for general adult medical examination without abnormal findings Complete Blood Count Auto Diff Today Debbie Man PA-C Z00.00 - Encounter for general adult medical examination without abnormal findings Phosphorus Today Debbie Man PA-C Z00.00 - Encounter for general adult medical examination without abnormal findings PTH Intact Intraoperative Today Debbie Man PA-C Z00.00 - Encounter for general adult medical examination without abnormal findings TSH reflex Free T4 Today Debbie Man PA-C Z00.00 - Encounter for general adult medical examination without abnormal findings Vitamin B12 and Folate Today Debbie Man PA-C Z00.00 - Encounter for general adult medical examination without abnormal findings Hemoglobin A1c Today Debbie Man PA-C Z00.00 - Encounter for general adult medical examination without abnormal findings Lipid Panel Today Debbie Man PA-C Z00.00 - Encounter for general adult medical examination without abnormal findings Liver Panel Today Debbie Man PA-C Z00.00 - Encounter for general adult medical examination without abnormal findings Medications: Changed From allopurinol 100 mg PO DAILY 90 tabs 1RF M10.9 - Gout, unspecified To allopurinol 150 mg PO DAILY M10.9 - Gout, unspecified Jared Carroll PA-C Refilled cetirizine (Zyrtec) 10 mg PO DAILY 30 tabs 1RF allergy symptoms Debbie Man PA-C J31.0 - Chronic rhinitis Patient Instructions: Patient Instructions - Refill and resume taking Zyrtec as prescribed for postnasal drip. - Continue taking Allopurinol and monitor for any gastrointestinal issues. - Perform fasting blood work as ordered before the next physical exam. - Maintain current treatment regimen for hypertension. - Coordinate with the office for scheduling an annual physical around May. - Consider signing up for the patient portal for easy communication with the clinic. Scribe Plan - Not visible on output: History of Present Illness The patient is a 79-year-old male presenting for a six-month follow-up and management of chronic conditions. He sustained an ankle sprain several months ago, for which he had an X-ray that was negative for fractures. The sprain has since improved. The patient also reports experiencing postnasal drip, primarily at night, which causes discomfort due to the presence of dentures. He was previously prescribed Zyrtec but discontinued it as he ran out of the medication. The patient reports using high-dose Allopurinol for gout management, having experienced gastrointestinal side effects at higher doses, which led to a reduction in dosage to 150mg daily. Control of the gout with these adjustments was noted. The patient's PTH levels were previously noted to be elevated. The patient is prescribed multiple medications for hypertension, which is well controlled, and reports no additional issues. He was advised to undergo periodic blood work, the last of which indicated only slight abnormalities pertinent to gout and PTH but were well-managed. Patient has chronic kidney disease being followed by Nephrology. Social History - Resides with his . - Has three children and four grandchildren. - Drives independently and manages household affairs without assistance. - No smoking, alcohol, or substance use discussed. Review of Systems - Respiratory: Reports postnasal drip, primarily nocturnal. - Gastrointestinal: Denies black or bloody stools. Reports previous diarrhea due to medication adjustment. Physical Exam Appearance: Alert. Oriented X3. No acute distress. Head: Normal external exam. Normocephalic. Atraumatic. Eyes: Pupils are equal, round, and reactive to light. Extraocular movements intact. Conjunctiva and sclera normal. Eyelids normal. Ears: External auditory canal normal. Tympanic membranes normal. Throat: Pharynx normal. Uvula midline. Moist mucous membranes. Neck: Normal inspection. Neck supple. Full range of motion. No adenopathy. Thyroid Normal. No meningeal signs. No neck mass noted. Cardiovascular: Normal heart rate and rhythm. Heart sound normal. No murmurs noted. Pulses normal throughout. Respiratory: No respiratory distress. Painless inspiration. Breath sounds normal with a little bit of a whistle at the end. No wheezes/rales/rhonchi noted. Chest nontender. No accessory muscle usage noted or decreased air movement noted. Abdomen: Soft and nontender. Bowel sounds normal in all 4 quadrants. No distention noted. No organomegaly noted. No visible injury noted. Back: No costovertebral angle tenderness. Full range of motion noted. Skin: Skin warm and dry. Normal skin color. Normal skin turgor. No rashes/lesions/lacerations noted. Extremities: No lower extremity edema. Extremities exhibit normal range of motion. Extremities nontender. Neuro: Oriented X 3. No motor deficit. No sensory deficit. Reflexes normal. Results - Labs: Previous blood work done in June, reviewed in July, noted PTH elevation. - Imaging: Ankle X-ray was negative. Plan - Recommend refill of Zyrtec to manage postnasal drip symptoms. - Continue current Allopurinol dosage for gout management and monitor for side effects. - No change in hypertension management; continue current medications. - Scheduled follow-up labs including CBC, CMP, magnesium, phosphorus, PTH, TSH, vitamin D level, and others to monitor current diagnoses. - Coordinate fasting blood tests prior to the upcoming physical examination. Patient was informed and verbally consented to the use of an ambient scribe for clinic note documentation during this visit. Discussion Notes During today's visit, I discussed the ongoing management and monitoring of the patient's chronic conditions, specifically hypertension and gout. The patient was instructed on the benefits of medication adherence and informed of the potential side effects which may necessitate medication adjustments. We reviewed the need to refill Zyrtec, which can help manage his reported postnasal drip symptoms and improve comfort, particularly at night. Additionally, the patient was advised to coordinate fasting blood tests to facilitate accurate laboratory evaluations and was reminded of his scheduling for the next physical. Patient Instructions - Refill and resume taking Zyrtec as prescribed for postnasal drip. - Continue taking Allopurinol and monitor for any gastrointestinal issues. - Perform fasting blood work as ordered before the next physical exam. - Maintain current treatment regimen for hypertension. - Coordinate with the office for scheduling an annual physical around May. - Consider signing up for the patient portal for easy communication with the clinic.
[2024-12-26 10:18] VITALS: BP 110/60; PULSE 66; TEMP 36.3; O2SAT 97; BMI 40.7
--- OUTSIDE RECORDS SUMMARY | 2024-12-26 11:06 | XMS_ITS | Clinical Summary ---
Author Organization [facility] Address [address] [phone] Phone Care Team Providers Care Practice Specialist Name Role Phone Skyler Yeboah MD Primary Care Provider + Allergies No known active allergies Medications amLODIPine (NORVASC) 5 MG tablet Take 5 mg by mouth in the morning and 5 mg in the evening. 0 Active metoprolol succinate XL (TOPROL XL) 50 MG 24 hr tablet Take 50 mg by mouth in the morning. 1 Active pantoprazole (PROTONIX) 40 MG EC tablet Take 40 mg by mouth in the morning. 0 Active olmesartan-hydr oCHLOROthiazide (BENICAR HCT) 40-25 MG per tablet Take 1 tablet by mouth in the morning. 1 Active colchicine 0.6 MG tablet Take 0.6 mg by mouth 2 (two) times a day if needed for muscle/joint pain Active saccharomyces boulardii (FLORASTOR) 250 MG capsule Take 250 mg by mouth 1 (one) time each day Active Multiple Vitamin (multivitamin) tablet Take 1 tablet by mouth 1 (one) time each day Active psyllium (METAMUCIL) 0.52 g capsule Take 2.6 g by mouth 1 (one) time each day Active allopurinol (ZYLOPRIM) 100 MG tablet Take 2 tablets (200 mg total) by mouth in the morning. 180 tablet 3 4 02/07/20 25 Active Additional Information Patient taking differently: 150 mgOral Daily, Reported on 08/11/2024 cetirizine (ZyrTEC) 10 MG chewable tablet Chew 10 mg 1 (one) time each day Active Active Problems Problem Noted Date Diagnosed Date Stage 3b chronic kidney disease 04/26/2023 Gout, not otherwise specified 04/26/2023 Personal history of prostate cancer 04/26/2023 Hypertension 04/26/2023 Social History Tobacco Use Types Packs/Day Years Used Date Smoking Tobacco: Former Cigarettes Smokeless Tobacco: Never Tobacco Cessation:Counseling Given: Not Answered Alcohol Use Standard Drinks/Week Comments Yes 0 (1 standard drink = 0.6 oz pure alcohol) occasionally(holidays/special occasions) Sex and Gender Information Value Date Recorded Sex Assigned at Not on file Legal Sex Male 2:31 PM EST Gender Identity Not on file Sexual Orientation Not on file Last Filed Vital Signs Vital Sign Reading Time Taken Comments Blood Pressure 142/70 08/11/2024 8:14 AM EDT Pulse 60 08/11/2024 8:14 AM EDT Temperature - - Respiratory Rate - - Oxygen Saturation 99% 02/07/2024 9:59 AM EDT Inhaled Oxygen Concentration - - Weight 124 kg (273 lb) 08/11/2024 8:05 AM EDT Height 175.3 cm (5' 9 ) 02/07/2024 9:59 AM EDT Body Mass Index 40.32 02/07/2024 9:59 AM EDT Plan of Treatment Upcoming Encounters Date Type Department Care Team (Late st Contact Info) Description 02/02/2025 11:40 AM EDT Office Visit [facility] [address] [phone] Dino Bowser MD [address] [phone] Health Maintenance Due Date Last Done Comments Pneumococcal Vaccine: 65+ Ye ars (1 of 2 - PCV) 1951 Influenza Vaccine (#1) 2024 Hepatitis B Vaccine Aged Out No longe r eligible based on patient's age to complete this topic Insurance [facility] Care Teams Practice Specialist Relationship Specialty Start Date End Date Skyler Yeboah MD [facility] [address] [place] [address] [address] [facility] [place] [facility] [address] PCP - General Internal Medicine 08/07/24
== END 2024-12-26 10:57 | disposition home or self-care (01) ==
PROVIDERS: PCP Internal Medicine; Visit Provider Physician Assistant Medical
DX: I12.9 Hypertensive chronic kidney disease with stage 1 through stage 4 chronic kidney disease, or unspecified chronic kidney disease (principal); N18.30 Chronic kidney disease, stage 3 unspecified; Z68.41 Body mass index [BMI] 40.0-44.9, adult; E66.9 Obesity, unspecified; E78.00 Pure hypercholesterolemia, unspecified; M1A.3 Chronic gout due to renal impairment; K21.9 Gastro-esophageal reflux disease without esophagitis; J31.0 Chronic rhinitis; Z09 Encounter for follow-up examination after completed treatment for conditions other than malignant neoplasm

== ENCOUNTER → 2024-12-26 10:12 | Outpatient (BNVA) | payer MEDICARE, SELFPAY | PROVIDERS: PCP Internal Medicine; Visit Provider Physician Assistant Medical | DX: Z09 Encounter for follow-up examination after completed treatment for conditions other than malignant neoplasm (principal); I12.9 Hypertensive chronic kidney disease with stage 1 through stage 4 chronic kidney disease, or unspecified chronic kidney disease; N18.30 Chronic kidney disease, stage 3 unspecified; E78.00 Pure hypercholesterolemia, unspecified; E66.9 Obesity, unspecified; M1A.3 Chronic gout due to renal impairment; K21.9 Gastro-esophageal reflux disease without esophagitis; J31.0 Chronic rhinitis | CPT/HCPCS: 96127; 99212 ==

== ENCOUNTER 2025-01-20 08:28 | Outpatient (REF) | payer MEDICARE, SELFPAY ==
[2025-01-20 08:54] LABS: MANUAL DIFF FLAG NO
--- OUTSIDE RECORDS SUMMARY | 2025-01-20 08:54 | XMS_ITS | Clinical Summary ---
Author Organization [facility] Address [address] [phone] Phone Care Team Providers Care Rivet [employer] Name Role Phone Skyler Yeboah MD Primary [...] Office Visit [facility] [address] [place] [phone] Dino Bowser MD [address] [phone] 02/08/2025 Orders Only [facility] [address] [phone] Dino Bowser MD [address] [phone] Stage 3b chronic kidney disease (HCC); Personal history of prostate cancer; Hypertension; Gout, not otherwise specified Health Maintenance Due Date Last Done Comments Pneumococcal Vaccine: 65+ Ye ars (1 of 2 - PCV) 1951 Influenza Vaccine (#1) 2024 08/14/2014 Hepatitis B Vaccine Aged Out No longe r eligible based on patient's age to complete this topic Insurance [facility] Care Teams [employer] Relationship Specialty Start Date End Date Skyler Yeboah MD [facility] [address] [place] [address] [place] [address] PCP - General Internal Medicine 08/07/24
[2025-01-20 09:28] LABS: Basophils Absolute Auto 0.1 X10*3/uL (0.0-0.2); Eosinophils Absolute Auto 0.6 X10*3/uL (0.0-0.4); Eosinophils Percent Auto 5.7 % (0-4); Hematocrit 46.3 % (42.0-52.0); Hemoglobin 15.1 g/dl (14.0-18.0); Imm Gran Abs Auto 0.05 X10*3/uL (0.00-0.03); Imm Gran Pct Auto 0.5 % (0.0-0.4); Lymphocytes Absolute Auto 1.9 X10*3/uL (1.2-4.9); Mean Corpuscular HGB Conc 32.6 g/dl (31.0-36.0); Mean Corpuscular Hemoglobin 28.7 pg (27.0-33.0); Mean Corpuscular Volume 87.9 fL (80.0-98.0); Mean Platelet Volume 10.2 fL (9.4-12.4); Monocytes Absolute Auto 0.6 X10*3/uL (0.1-1.2); Monocytes Percent Auto 5.4 % (2-11); Neutrophils Absolute Auto 7.5 x10*3/uL (2.0-8.3); Neutrophils Percent Auto 69.4 % (45-73); Platelet Count 345 X10*3/uL (160-400); Red Blood Count 5.27 X10*6/uL (4.60-5.80); Red Cell Distribution Width 14.2 % (11.0-16.0); White Blood Count 10.8 X10*3/uL (4.8-10.8)
[2025-01-20 10:11] LABS: Alanine Aminotransferase 15 U/L (0-40); Albumin Level 4.1 g/dL (3.5-5.0); Alkaline Phosphatase 102 U/L (39-117); Anion Gap 11 (12-20); Aspartate Amino Transferase 18 U/L (5-37); Bilirubin Total 0.3 mg/dL (0.0-1.0); Blood Urea Nitrogen 21 mg/dL (9-16); Calcium 9.1 mg/dL (8.4-10.2); Carbon Dioxide 29 mmol/L (22-29); Chloride 106 mmol/L (96-108); Estimated Glomerular Filt Rate 54; Glucose Random 127 mg/dL (60-115); Magnesium 1.9 mg/dL (1.6-2.6); Phosphorus 2.7 mg/dL (2.7-4.5); Potassium 4.1 mmol/L (3.3-5.1); Sodium 142 mmol/L (135-145); Total Protein 7.9 g/dL (6.5-8.0)
[2025-01-20 10:18] LABS: Creatinine Urine 204.62 mg/dL; Protein/Creatinine Ratio, Ur 0.13 (<0.2); Total Protein Urine Random 27 mg/dL (<12)
[2025-01-20 10:25] LABS: Parathyroid Hormone Intact 97.8 pg/mL (8.7-77.1); Uric Acid 6.3 mg/dL (3.4-7.0); Vitamin D 25-OH Total 43.7 ng/mL (>30)
== END 2025-01-20 08:29 | disposition home or self-care (01) ==
LOC: HO.LAB 08:28
PROVIDERS: PCP Internal Medicine; Referring Provider Internal Medicine; Visit Provider Internal Medicine Nephrology
DX: N18.32 Chronic kidney disease, stage 3b (principal); Z85.46 Personal history of malignant neoplasm of prostate; I10 Essential (primary) hypertension; M10.9 Gout, unspecified
CPT/HCPCS: 36415; 80053; 82306; 82570; 83735; 83970; 84100; 84156; 84550; 85025

== ENCOUNTER 2025-06-11 13:44 | Outpatient (AMB) | payer MEDICARE, SELFPAY ==
--- OUTSIDE RECORDS SUMMARY | 2025-06-11 13:47 | XMS_ITS | Clinical Summary ---
Author Organization [facility] Address [address] [phone] Phone Care Team Providers Care Burn Table Operator Name Role Phone Skyler Yeboah MD Primary Care Provider + Allergies No known active allergies Medications amLODIPine (NORVASC) 5 MG tablet Take 5 mg by mouth in the morning and 5 mg in the evening. 11/18/2020 Active metoprolol succinate XL (TOPROL XL) 50 MG 24 hr tablet Take 50 mg by mouth in the morning. 12/06/2020 Active pantoprazole (PROTONIX) 40 MG EC tablet Take 40 mg by mouth in the morning. 11/08/2020 Active olmesartan-hydr oCHLOROthiazide (BENICAR HCT) 40-25 MG per tablet Take 1 tablet by mouth in the morning. 01/18/2021 Active colchicine 0.6 MG tablet Take 0.6 [...] mouth 1 (one) time each day Active cetirizine (ZyrTEC) 10 MG chewable tablet Chew 10 mg 1 (one) time each day Active allopurinol (ZYLOPRIM) 100 MG tablet TAKE 2 TABLETS (200 MG TOTAL) BY MOUTH IN THE MORNING 180 tablet 3 03/23/2025 6 Active Active Problems Problem Noted Date Diagnosed Date Stage 3b chronic kidney disease 04/26/2023 Gout, not otherwise specified 04/26/2023 Personal history of prostate cancer 04/26/2023 Hypertension 04/26/2023 Encounters Date Type Department Care Team Description 03/22/2025 Refill [facility] [address] [facility] [address] [place] [phone] Dino Bowser MD from Last 3 Months Social History Tobacco Use Types Packs/Day Years [...] Sign Reading Time Taken Comments Blood Pressure 179/81 02/02/2025 11:26 AM EDT Pulse 60 02/02/2025 11:26 AM EDT Temperature - - Respiratory Rate - - Oxygen Saturation 97% 02/02/2025 11:26 AM EDT Inhaled Oxygen Concentration - - Weight 129 kg (284 lb 6.4 oz) 02/02/2025 11:26 A M EDT Height 175.3 cm (5' 9 ) 02/02/2025 11:26 AM EDT Body Mass Index 42 02/02/2025 11:26 AM EDT Plan of Treatment Upcoming Encounters Date Type Department Care Team (Late st Contact Info) Description 02/02/2026 8:00 AM EDT Office Visit [facility] [address] [facility] [address] [place] [phone] Dino Bowser MD [address] [facility] [address] [place] [phone] Health Maintenance Due Date Last Done Comments Pneumococcal Vaccine: 50+ Ye ars (1 of 2 - PCV) 1964 Influenza Vaccine (#1) 2025 08/14/2014 Hepatitis B Vaccine Aged Out No longe r eligible based on patient's age to complete this topic Insurance [facility] Care Teams Burn Table Operator Relationship Specialty Start Date End Date Skyler Yeboah MD [address] , [address] [address] PCP - General Internal Medicine 08/07/24
--- OUTSIDE RECORDS SUMMARY | 2025-06-11 13:47 | XMS_ITS | Clinical Summary ---
Author Organization [facility] Address [address] [place] [phone] Phone Care Team Providers Care Accredited Pharmacy Technician Name Role Phone Nirmala Clemons MD Primary Care Provider Allergies No known active allergies Medications allopurinol (ZYLOPRIM) 100 MG tablet Take 100 mg by mouth daily. 12/04/2020 Active metoprolol succinate (TOPROL-XL) 50 MG 24 hr tablet Take 50 mg by mouth daily. 12/06/2020 Active amLODIPine (NORVASC) 5 MG tablet Take 5 mg by mouth 2 (two) times a day. 11/18/2020 Active olmesartan-hydro CHLOROthiazide (BENICAR HCT) 40-25 mg per tablet Take 1 tablet by mouth daily. 01/18/2021 Active pantoprazole (PROTONIX) 40 MG tablet Take 40 mg by mouth daily. 11/08/2020 Active Social History Tobacco Use Types Packs/Day Years Used Date Smoking Tobacco: Former Cigarettes Smokeless Tobacco: Never Alcohol Use Standard Drinks/Week Comments Not Currently 0 (1 standard drink = 0.6 oz pur e alcohol) Education Answer Date Recorded Are you interested in more education? Not on geovanna e 03/16/2023 Are you concerned about learning? Not on file 03/16/2023 No 03/16/2023 No 03/16/2023 Digital Access Answer Date Recorded No 04/14/2023 No 04/14/2023 No 04/14/2023 Reliable internet access at home? Not on file 04/14/2023 Device with a working camera? Not on file Sex and Gender Information Value Date Recorded Sex Assigned at Not on file Legal Sex Male 10:22 AM EDT Gender Identity Not on file Sexual Orientation Not on file Last Filed Vital Signs Vital Sign Reading Time Taken Comments Blood Pressure - - Pulse - - Temperature - - Respiratory Rate - - Oxygen Saturation - - Inhaled Oxygen Concentration - - Weight 129.7 kg (286 lb) 02/01/2021 10:41 AM EDT Height 175.3 cm (5' 9 ) 02/01/2021 10:41 AM EDT Body Mass Index 42.23 02/01/2021 10:41 AM EDT Plan of Treatment Health Maintenance Due Date Last Done Comments Adult Td,Tdap Booster 1945 CREATININE LEVEL 1946 LIPID PANEL 1946 POTASSIUM LEVEL 1946 DEPRESSION SCREENING 1958 SMOKING Hx and SMOKELESS TOBACCO SCREENING 1959 HEPATITIS C SCREENING 1964 ZOSTER VACCINES (1 of 2) 1996 PNEUMOCOCCAL VACCINES (50+ years) (2 of 2 - PCV) 08/08/2020 08/08/2019 RSV VACCINE (1 - 1-dose 75+ series) 2021 COVID-19 VACCINE (3 - 2023-2 5 season) 2024 03/05/2021, 02/11/2021 HEPATITIS A VACCINES Aged Out No long er eligible based on patient's age to complete this topic HIB VACCINES Aged Out No longer eligi ble based on patient's age to complete this topic MENINGOCOCCAL VACCINES (ACWY) Aged Out No longer eligible based on patient's age to complete this topic MENINGOCOCCAL VACCINES (B) Aged Out N o longer eligible based on patient's age to complete this topic Medical Devices Not on file Insurance [employer] [facility] [facility] MEDICARE HMO REPLACEMENT [facility] MEDICARE HMO REPLACEMENT [employer] [facility] MEDICARE HMO REPLACEMENT [employer] Care Teams Accredited Pharmacy Technician Relationship Specialty Start Date End Date Nirmala Clemons MD [address] [place] [phone] PCP - General Internal Medicine 02/01/21 Additional Source Comments The information contained in this document represents components of the legal health record. It is not the complete legal health record.[facility]
--- NOTE | 2025-06-11 14:05 | MHC.PC.OV ---
Vital Signs 06/11/25 14:06 Height 5 ft 9.5 in Weight 282 lb 2 oz BMI 41.1 BP 116/66 Blood Pressure Location Lt brachial Position Sitting Pulse 63 Pulse Source Pulse Oximeter Temp 97.1 F Temp Source Temporal Artery Scan Pulse Oximetry (%) 96 Oxygen Delivery Method Room Air Intake Visit Reasons: Annual Exam - see comments Intake Note: Patient is here today for a physical. Computer Project Manager Required: No Office Machine Installer: Present Accompanied by: Spouse Allergies No Known Allergies Allergy (Verified 06/11/25 15:05) Medication List - Last Reconciled 06/11/25 by Skyler Yeboah MD allopurinol 150 mg PO DAILY amlodipine 5 mg PO BID cetirizine 10 mg PO DAILY clotrimazole 10 mg mucous membrane TID colchicine 0.6 mg PO BID metoprolol succinate ER 50 mg PO DAILY multivitamin (Daily Multi-Vitamin tablet) 1 tab PO DAILY olmesartan-hydrochlorothiazide 40-25 mg 1 tab PO DAILY pantoprazole 40 mg PO DAILY psyllium 0.52 grams PO DAILY Tobacco use date assessed: 06/11/25 Fall risk assessment: No Falls in past year Last assessed Fall Risk: 06/11/25 Dental Screening Dental Screen Date: 12/26/24 [facility] Medical History (Updated 12/26/24 @ 10:55 by Debbie Man PA-C) Follow-up exam, 3-6 months since previous exam Encounter to establish care H/O prostate cancer Gout Primary hypertension GERD without esophagitis Surgical History History of colonoscopy H/O transurethral resection of prostate History of colon surgery History of prostate surgery History of carpal tunnel surgery Social History Housing: House Alcohol intake: current Alcohol intake frequency: holidays/special occasions only Patient Tobacco Use Status: Former Tobacco user Tobacco use type: Cigarette e-Cigarette/Vaping Use: Never Used Second Hand Smoke Exposure: Yes service: Yes Current occupational status: retired Cognitive needs: No Hearing needs: No Vision needs: Yes (glasses) Questionnaire PHQ-9 Over the last 2 weeks, how often have you been bothered by any of the following problems? 1. Little interest or pleasure in doing things: not at all 2. Feeling down, depressed, or hopeless: not at all 3. Trouble falling or staying asleep, or sleeping too much: not at all 4. Feeling tired or having little energy: nearly every day 5. Poor appetite or overeating: not at all 6. Feeling bad about yourself - or that you are a failure or have let yourself or your family down: not at all 7. Trouble concentrating on things, such as reading the newspaper or watching television: not at all 8. Moving or speaking so slowly that other people could have noticed. Or the opposite - being so fidgety or restless that you have been moving around a lot more than usual: not at all 9. Thoughts that you would be better off or of hurting yourself in some way: not at all Total score: 3 Depression Screening Interpretation: Negative Depression Screening Done: Yes Source: Developed by Drs. Bari Miller, Naina Culver, Sebastian Butler and colleagues, with an educational antonia from [employer]. Thrive Questionnaire Date Thrive assessed: 06/04/25 I am a: Patient What is your living situation today?: I have a steady place to live Within the past 12 months, did the food you bought not last and you didn't have the money to get more?: Never true Within the past 12 months, did you worry whether your food would run out before you got money to buy more?: Never true Do you have trouble paying for medicines?: No Do you have trouble getting transportation to medical appointments?: No Do you have trouble paying your heating and electricity bill?: No Do you have trouble taking care of your child, family member or friend?: No Do you have trouble with day-to-day activities such as bathing, preparing meals, shopping, managing finances, etc.?: No Are you currently unemployed and looking for a job?: No Are you interested in more education?: No Please select the resources that you would like help with: None Currently or been in a relationship where the following occur: No concerns reported THRIVE Score: 0 AUDIT C Alcohol Use Questionnaire (AUDIT-C) 1. How often do you have a drink containing alcohol?: Monthly or less 2. How many drinks containing alcohol do you have on a typical day when you are drinking?: 1 or 2 3. How often do you have six or more drinks on one occasion?: Never Total Score: 1 SELAM-7 AMB Questionnaire SELAM-7 Date SELAM - 7 assessed: 06/11/25 Feeling nervous, anxious, or on edge: 0 = Not at all Not being able to stop or control worryin = Not at all Worrying too much about different things: 0 = Not at all Trouble relaxin = Not at all Being so restless that it is hard to sit still: 0 = Not at all Becoming easily annoyed or irritable: 0 = Not at all Feeling afraid as if something awful might happen: 0 = Not at all Total SELAM-7 score (0-4 normal; 5-9 mild; 10-14 moderate; 15-21 severe): 0 Source: Developed by Drs. Bari Miller, Naina Culver, Sebastian Butler and colleagues, with an educational antonia from [employer]. Physical exam (Primary Care) Vital Signs: Last Vital Signs Temp 97.1 F 06/11/25 14:06 Pulse 63 06/11/25 14:06 BP 116/66 06/11/25 14:06 Pulse Ox 96 06/11/25 14:06 Oxygen Delivery Method Room Air 06/11/25 14:06 Care Plan Goal for BP management: Blood pressure is in range. Continue current medications. BMI result Body Mass Index 41.1 BMI Assessment/Plan discussion: High (1 lb per week weight loss suggested.) BMI High, discussed plan: lifestyle, weight reduction and dietary Tobacco/Smoking Status: Tobacco use Status Tobacco use date assessed 06/11/25 06/11/25 14:13 Patient Tobacco Use Status Former Tobacco user 06/11/25 14:13 Tobacco use type Cigarette 06/11/25 14:13 e-Cigarette/Vaping Use Never Used 06/11/25 14:13 PHQ-9: PHQ-9 Score PHQ-9: Total score 3 06/11/25 14:13 Depression Screening Interpretation: Negative Thrive Assessment: Date of Thrive Assessment Date Thrive assessed 06/04/25 06/11/25 14:13 Currently or been in a relationship where the following occur: No concerns reported Const General: cooperative and healthy appearing Nutritional Appearance: well nourished Orientation/consciousness: patient oriented x3 Limitations: no limitations HENMT Head: Yes normal to inspection Eyes General: appearance normal, both eyes and all related structures Neck Neck: Yes normal visual inspection Chest Chest palpation & inspection: normal palpation of entire chest wall Resp Effort & Inspection: normal respiratory effort Neuro General: patient oriented x3 Coding Level of Care Code Est Pt Prev Care >65y(28265) Diagnoses Annual physical exam Z00.00 CKD (chronic kidney disease) stage 3, GFR 30-59 ml/min N18.30 Primary hypertension I10 Assessment & Plan Assessment & Plan (1) Annual physical exam: Code(s): Z00.00 - Encounter for general adult medical examination without abnormal findings Category: Medical Plan: Blood work reviewed. (2) CKD (chronic kidney disease) stage 3, GFR 30-59 ml/min: Code(s): N18.30 - Chronic kidney disease, stage 3 unspecified Category: Medical Plan: Condition is stable. Continue current medications. (3) Primary hypertension: Code(s): I10 - Essential (primary) hypertension Category: Medical Plan: Blood pressure is stable. Plan History of Present Illness - The patient is a 79-year-old male presenting with a physical examination and ongoing health concerns. - Skin tags: Reports presence in various locations, including the scalp. - Chronic kidney disease: Under continuous loft operator care due to elevated kidney function tests; condition stable with follow-up in January. - Gout: History of gout affecting the ankle; currently asymptomatic. - Post-nasal drip: Experiences symptoms in the morning; previously prescribed cetirizine and Singulair with limited relief. - Mobility: Reports instability due to knee issues and previous ankle sprain. - Social history: Retired, previously worked at [employer]; plays golf regularly using a cart. Social History - Employment: Retired, previously worked at [employer] and [employer]. - Exercise: Plays golf regularly, using a cart for mobility. Review of Systems - Dermatological: Reports presence of skin tags. - Renal: Denies current symptoms, under continuous loft operator care for chronic kidney disease. - Musculoskeletal: Reports instability while walking, knee issues, and previous ankle sprain. - Respiratory: Reports post-nasal drip, particularly in the morning. Physical Exam General: Cooperative and healthy appearing Nutritional Appearance: Well nourished Orientation/consciousness: Patient oriented x3 Limitations: No limitations Head: Normal to inspection General: Appearance normal, both eyes and all related structures Neck: Normal visual inspection Chest: Normal palpation of entire chest wall Respiratory: Drip in the back of throat noted, patient on Setrazine and previously tried Singulair without much help. ormal respiratory effort Neurology: Patient oriented x3, but walking is a little unstable, especially since spraining the ankle. Results - Labs: Blood work was reported as fine. Plan 1. Skin Tags - No treatment necessary unless for cosmetic reasons. 2. Chronic Kidney Disease - Follow-up with continuous loft operator scheduled for January. 3. Gout - Currently asymptomatic; continue monitoring. 4. Post-Nasal Drip - Continue current medications; consider alternative treatments if symptoms persist. Discussion Notes During the visit, we discussed the patient's stable chronic kidney disease and the plan to follow up with the continuous loft operator in January. We also reviewed the management of gout, which is currently asymptomatic, and the post-nasal drip, for which the patient is taking cetirizine and Singulair. We agreed to continue monitoring these conditions and consider alternative treatments if necessary. The patient was advised that skin tags do not require treatment unless for cosmetic reasons. Patient Instructions - Continue current medications as prescribed. - Follow up with continuous loft operator in January. - Monitor for any changes in symptoms and report if necessary. - Consider cosmetic removal of skin tags if desired.
[2025-06-11 14:06] VITALS: BP 116/66; PULSE 63; TEMP 36.2; O2SAT 96; BMI 41.1
== END 2025-06-11 15:00 | disposition home or self-care (01) ==
LOC: HO.HMCH 13:45
PROVIDERS: PCP Internal Medicine; Visit Provider Internal Medicine
DX: Z00.00 Encounter for general adult medical examination without abnormal findings (principal); N18.30 Chronic kidney disease, stage 3 unspecified; I10 Essential (primary) hypertension

== ENCOUNTER → 2025-06-11 13:44 | Outpatient (BNVA) | payer MEDICARE, SELFPAY | PROVIDERS: PCP Internal Medicine; Visit Provider Internal Medicine | DX: Z00.00 Encounter for general adult medical examination without abnormal findings (principal); I12.9 Hypertensive chronic kidney disease with stage 1 through stage 4 chronic kidney disease, or unspecified chronic kidney disease; N18.30 Chronic kidney disease, stage 3 unspecified; L91.8 Other hypertrophic disorders of the skin; R09.82 Postnasal drip; Z87.39 Personal history of other diseases of the musculoskeletal system and connective tissue; Z13.31 Encounter for screening for depression; Z13.39 Encounter for screening examination for other mental health and behavioral disorders | CPT/HCPCS: 96127; 99397 ==